=== PATIENT | female | born 1975 | race American Indian/Alaskan Native ===

== ENCOUNTER 2016-07-27 17:04 | Emergency (ER) | payer SELFPAY ==
--- NOTE | 2016-07-27 17:35 | OBHP ---
Datetime: 07/27/2016 17:31 IP Adm Impression: Term, intrauterine IP Admit Plan: Observation/Evaluation Admit Comment, IP Provider: at 38+weeks came with c/o decreased movements since morning, no ctxs, vb, lof.pt feels it but light. obhx 2 x c/s pmh den med pnv all nkda psh denies soch denies a/p at 38+weeks dec fm start ivf cbc/t _ screen cont salome and efm cont close observation Pelvic Type - PN: Adequate Extremities - PN: Normal Abdomen - PN: Normal Back - PN: Normal Breast - PN: Normal Lungs - PN: Normal Heart - PN: Normal Thyroid - PN: Normal Neurologic - PN: Normal HEENT - PN: Normal General - PN: Normal FHR - Baseline A Provider: 130 Contraction Comments Provider: none EGA AdmitDate IP: 38.4 Vital Signs Provider: Reviewed; Within Normal Limits IP Chief Complaint: Decreased movement NICHD Variability Prov Fetus A: Moderate 6-25bpm Genitourinary Exam: Normal DTRs - PN: Normal
[2016-07-27 17:36] VITALS: BMI 41.1
[2016-07-27] MEDS ORDERED: Lactated Ringer's 1,000 ML IV SCH (17:45)
[2016-07-27] MEDS ORDERED: Dextrose 5%/Lactated Ringer's 1,000 ML IV SCH (17:45)
[2016-07-27 17:59] LABS: MEAN CELL VOLUME 83.1 fL (81.0-99.0); MEAN CORPUSCULAR HEMOGLOBIN 26.8 pg (27.0-31.0); MEAN CORPUSCULAR HGB CONC 32.3 g/dL (33.0-37.0); MEAN PLATELET VOLUME 8.5 fL (7.2-11.7); RED CELL DISTRIBUTION WIDTH 15.7 % (11.5-14.5); WHITE BLOOD COUNT 10.3 K/uL (4.8-10.8)
--- NOTE | 2016-07-27 20:36 | OBDCSUM ---
Datetime: 07/27/2016 18:16 Follow up at, Provider: AMA Disch Instr Activity: Normal activity Disch Instr Diet: Regular Follow up in weeks, Provider: as schedule Disch Referrals: None Discharge Comment, Provider: dc home c/s on monday labor ins given Discharge Diagnosis Prov Other: 38weeks dec fm nst
--- NOTE | 2016-07-27 20:37 | OBHP ---
Datetime: 07/27/2016 20:17 Admit Comment, IP Provider: pt was seen at bed side. feels the baby moving sono bpp 12/06 plan dc home c/s on monday labor ins given f/u in 2days FHR - Baseline A Provider: 130 Vital Signs Provider: Reviewed NICHD Variability Prov Fetus A: Moderate 6-25bpm NICHD Accel Fetus A IP Provider: 15X15 FHR Category Provider Fetus A: Category I Datetime: 07/27/2016 17:31 EGA AdmitDate IP: 38.4
--- NOTE | 2016-07-28 11:14 | US ---
PROCEDURE: HISTORY: decreased fm COMPARISON: None TECHNIQUE: Transabdominal scanning of the maternal pelvis and a 2nd/ 3rd trimester with image documentation FINDINGS: Fetus: Single intrauterine gestation heart rate: Present at 141 beats per minute presentation: Cephalic Placenta: Posterior without previa or abruption Amniotic fluid : Normal appearin.8 cm ; pockets 3.4, 4.3, 5.0 and 2.1 anatomy: Limited due to late gestation. biometrics: Gestational age by ultrasound: 39 weeks 3 days +/-2 weeks 5 days with estimated date of delivery 07/31/2016 Estimated weight: 3771 g +/-566 g Maternal factors: Uterus: Unremarkable. No myometrial masses Cervix: 2.5 cm length Free fluid: None Biophysical profile: Breathin Gross body movements: 2 Limb tone: 2 Amniotic Fluid: 2 Total biophysical profile: 12/06 IMPRESSION: Single intrauterine gestation with normal cardiac activity. presentation - cephalic. No previa . Biophysical profile 12/06
== END 2016-07-27 18:16 | disposition home or self-care (01) ==
LOC: C.EROB 17:04
DX: O36.8130 Decreased fetal movements, third trimester, not applicable or unspecified (principal); Z3A.38 38 weeks gestation of pregnancy
CPT/HCPCS: 76815; 76818; 85027; 86850; 86900; 99283; J7120

== ENCOUNTER 2016-07-29 07:46 | Inpatient (IN) | payer SELFPAY ==
[2016-07-29 08:08] VITALS: BMI 41.3
[2016-07-29] MEDS ORDERED: cefOXitin IV 2 gm in Dextrose 50 ML IVPB ONE ×2 (08:09→08:57)
[2016-07-29] MEDS ORDERED: Lactated Ringer's 1,000 ML IV SCH ×2 (08:15)
[2016-07-29] MEDS ORDERED: Sodium Citrate/Citric Acid 15 ml Sol ONE (08:57)
[2016-07-29 09:04] LABS: BASO % 0.4 % (0.0-2.0); EOS # 0.1 K/uL (0.0-0.7); EOS % 0.8 % (0.0-4.0); HEMATOCRIT 31.2 % (34.0-47.0); LYMPH # 2.1 K/uL (1.0-4.3); LYMPH % 26.2 % (20.0-40.0); MEAN CELL VOLUME 82.8 fL (81.0-99.0); MEAN CORPUSCULAR HGB CONC 32.6 g/dL (33.0-37.0); MEAN PLATELET VOLUME 8.8 fL (7.2-11.7); MONO # 0.6 K/uL (0.0-0.8); MONO % 7.9 % (0.0-10.0); RED CELL DISTRIBUTION WIDTH 15.6 % (11.5-14.5); WHITE BLOOD COUNT 8.1 K/uL (4.8-10.8)
[2016-07-29 09:10] LABS: CHLORIDE 102 mmol/L (98-107)
[2016-07-29 09:11] LABS: POTASSIUM 4.3 mmol/L (3.6-5.2); SODIUM 135 mmol/L (132-148)
[2016-07-29] MEDS: Sodium Citrate/Citric Acid 15 ml Sol PO ONE (09:11)
[2016-07-29 09:13] LABS: BILIRUBIN,TOTAL 0.3 mg/dL (0.2-1.3); GFR AFRICAN-AMERICAN > 60; RBC URINE < 1 /hpf (0-3); URINE BACTERIA MOD (<OCC); URINE BILIRUBIN NEGATIVE (NEGATIVE); URINE BLOOD NEGATIVE (NEGATIVE); URINE COLOR Yellow (YELLOW); URINE GLUCOSE (UA) NORMAL (Normal); URINE KETONE NEGATIVE (NEGATIVE); URINE LEUKOCYTE ESTERASE NEG Leu/uL (Negative); URINE PROTEIN NEGATIVE (NEGATIVE); URINE UROBILINOGEN NORMAL mg/dL (0.2-1.0); WBC URINE 9 /hpf (0-5)
[2016-07-29 09:14] LABS: ALKALINE PHOSPHATASE 76 U/L (38-126); AST/SGOT 14 U/L (14-36); BLOOD UREA NITROGEN 8 mg/dL (7-17); CARBON DIOXIDE 18 mmol/L (22-30); GLUCOSE,RANDOM 93 mg/dL (65-105)
[2016-07-29 09:29] LABS: ALT/SGPT 18 U/L (9-52)
[2016-07-29] MEDS ORDERED: Morphine 1 mg/ml preservative-free Inj(Duramorph) ONE (09:31)
[2016-07-29] MEDS ORDERED: Oxytocin 10 Units/ml Inj ONE (10:25)
[2016-07-29] MEDS ORDERED: ePHEDrine 50 mg/ml Inj ONE (10:40)
[2016-07-29] MEDS ORDERED: Naloxone 0.4 mg/ml Inj (Adult) IVP PRN (11:48)
[2016-07-29] MEDS ORDERED: cefOXitin IV 2 gm in Dextrose 50 ML IVPB SCH (13:45)
[2016-07-29] MEDS: Simethicone 80 mg Chewtab PO SCH ×3 (14:15→21:44)
--- NOTE | 2016-07-29 15:33 | PCM.SURG1 ---
Surgeon's Initial Post Op Note - Surgeon's Notes Surgeon: Radha Sandoval MD Can Closing Machine Operator: Ming Luis MD. 2nd Can Closing Machine Operator: Marilia Pedro MS-3 Type of Anesthesia: Spinal Anesthesia Administered By: Dr. Irvin Pre-Operative Diagnosis: Advanced maternal age; previous Caesarean section x 2; 38 weeks 6 days; anemia. Operative Findings: Live female , right occiput transverse, weight 8lb 1oz , Apgars 9/9. Cord pH 7.20. Dense adhesions from anteriorl aspect of uterus to abdominal wall. Normal uterus with small right anterofundal subserosal myoma 2 x 3 cm; normal fallopians tubes and ovaries, bilaterally Post-Operative Diagnosis: Same Operation Performed: Repeat transverse lower uterine segment Caesaeran section. Lysis of adhesions. Specimen/Specimens Removed: None Estimated Blood Loss: EBL {In ML}: 800 (U.O. 400 mL; 1500 mL LR) Blood Products Given: N/A Drains Used: No Drains Post-Op Condition: Good Date of Surgery/Procedure: 07/29/16 Time of Surgery/Procedure: 12:15
--- NOTE | 2016-07-29 15:45 | OBDS ---
DELIVERY PERSONNEL Delivery Doctor: Leonela Sandoval MD Scrub Nurse: Ruthy Heranndez OBT Network Security Consultant: Fco Hussein RN Anesthesiologist: Beatris Irvin MD MATERNAL INFORMATION Delivery Anesthesia: Spinal Medications in Delivery: pitocin 20/metergen/pit 10 add to pit 20 Estimated Blood Loss (ml): 800 Placenta Cultured: No Maternal Complications: None Provider Comments: Uncomplicated repeat transverse lower uterine segment Caesarean section performed with atraumatic delivery of live female infant, ROT; weight 8lb 1oz, Apgars 9/9; cord pH 7.20. Lysis was performed after delivery of infant; same repaired with multiple stitches using O, and 2-0 biosyn ; and 4-O monocryl. Grossly normal placenta; 3 vessel cord. Grossly normal uterus; grossly normal fal lopian tubes and ovaries, bilaterally. Hemostasis assured throughout. Patient tolerated procedure we ll; to LDR#2 for recovery in stable condition. LABOR SUMMARY EDC: 08/06/2016 00:00 No. Babies in Womb: 1 Attempted: No Labor Anesthesia: None LABOR INFORMATION Reason for Induction: Not Applicable Oxytocin: N/A Group B Beta Strep: Negative (Annotations: 07/07/2016) Antibiotics # of Doses: 1 Antibiotics Time of Last Dose: 9:45 Steroids Given: None Reason Steroids Not Administered: Not Applicable MEMBRANES Membranes Rupture Method: Artificial Rupture of Membranes: 07/29/2016 10:16 Length of Rupture (hrs): 0.03 Amniotic Fluid Color: Clear Amniotic Fluid Amount: Moderate Amniotic Fluid Odor: Normal STAGES OF LABOR Stage 3 hrs: 0 Stage 3 min: 1 VAGINAL DELIVERY Episiotomy: None Laceration Extension: N/A Laceration Type: None CSECTION DELIVERY Primary Indication: Repeat Elective Secondary Indication: N/A CSection Urgency: N/A CSection Incidence: Repeat Labor: N/A Elective: Elective CSection Incision: Lower Uterine Transverse Uterine Closure: Double-layer closure BABY A INFORMATION Infant Delivery Date/Time: 07/29/2016 10:18 Method of Delivery: Born in Route : No : N/A Forceps: N/A Vacuum Extraction: Successful Shoulder Dystocia : No SHOULDER DYSTOCIA BABY A Delivery Date/Time: 07/29/2016 10:18 PRESENTATION/POSITION BABY A Presentation: Cephalic Cephalic Presentation: Vertex Breech Presentation: N/A PLACENTA INFORMATION BABY A Placenta Delivery Time : 07/29/2016 10:19 Placenta Method of Delivery: Manual Removal Placenta Status: Delivered SCORES BABY A Heart Rate 1 min: >100 bpm Resp Effort 1 min: Good Cry Reflex Irritability 1 min: Cough or Sneeze or Pulls Away Muscle Tone 1 min: Active Motion Color 1 min: Body [place], Extremities Blue Resuscitation Effort 1 min: Tactile Stimulation SCORE 1 MIN: 9 Heart Rate 5 min: >100 bpm Resp Effort 5 min: Good Cry Reflex Irritability 5 min: Cough or Sneeze or Pulls Away Muscle Tone 5 min: Active Motion Color 5 min: Body [place], Extremities Blue SCORE 5 MIN: 9 INFANT INFORMATION BABY A Gestational Age at Delivery: 38.0 Gestational Status: Term Infant Outcome : Liveborn Condition : Stable Infant Sex: Female IDENTIFICATION/MEDS BABY A ID Band Number: [id number] ID Band Location: Left Leg; Left Arm Sensor Applied: Yes Sensor Number: [id number] Sensor Location : Cord Clamp WEIGHT/LENGTH BABY A Infant Birthweight (gms): 3650 Infant Weight (lb): 8 Infant Weight (oz): 1 Infant Length Inches: 19.50 Infant Length cms: 49.5 CORD INFORMATION BABY A No. Cord Vessels: 3 Nuchal Cord : N/A Cord Blood Taken: Yes Suction: Mouth; Nose ASSESSMENT BABY A Complications: None Physical Findings at Delivery: Within Normal Limits; Other Physical Findings Other: hernia by umblicus Respirations: Appears Normal Lone Lead Lineman/ALS Called : No Infant Care By: JESSICA Transferred To: Remains with Mother
[2016-07-29] MEDS: cefOXitin IV 2 gm in Dextrose 50 ML IVPB SCH (17:19)
--- NOTE | 2016-07-29 17:25 | OP ---
PROCEDURE DATE: 07/29/2016 SURGEON: Radha Sandoval M.D. NATURALIST: Ming Luis M.D. SECOND CONSTITUTIONAL LAW PROFESSOR: Marilia Pedro MS-3 ANESTHESIA TYPE: Spinal. ANESTHESIOLOGIST: Dr. Bereket Elliott. PREOPERATIVE DIAGNOSES: A 38 week 6 days gestation, previous Caesarean section x 2, advanced maternal age and anemia. POSTOPERATIVE DIAGNOSES: A 38 week 6 days gestation, previous Caesarean section x 2, advanced maternal age and anemia. OPERATIVE FINDINGS: Live female from the right occipital transverse position, weight 8 pounds 1 ounce and Apgars of 9 and 9 at 1 and 5 minutes respectively. Cord pH 7.20. There were dense adhesions from the anterior aspect of the uterus to the anterior abdominal wall. Otherwise grossly normal uterus with a small right chris-fundal subserosal myoma 2 cm x 3 cm; and normal fallopian tubes and ovaries, bilaterally. OPERATION PERFORMED: Repeat transverse lower uterine segment Caesarean section and lysis of adhesions. ESTIMATED BLOOD LOSS: 800 mL. URINE OUTPUT: 400 mL of clear urine. INTRAVENOUS FLUIDS: 1500 mL of lactated Ringers. BLOOD PRODUCTS GIVEN: None. COMPLICATIONS: None. SPECIMENS: None. PROCEDURE: The patient was taken to the operating room after having obtained informed consent for the anticipated procedure. This included a discussion of possible risks and complications including but not limited to infection requiring additional antibiotics, hemorrhage requiring blood transfusion, repair of any damage to internal organs and possible Caesarean hysterectomy. The patient expressed an understanding and agreed; no questions were offered. Consent forms were signed, dated, witnessed and placed in the patient's chart. Prior to being transferred to the operating room a Crenshaw catheter was inserted under sterile conditions and the patient received Mefoxin 2 grams. Once in the operating room, she was placed on the operating room table in a sitting position. Spinal anesthesia was administered without incident. She was immediately repositioned into a supine position. heart tones were auscultated at 152 beats per minute. The abdomen was prepped and draped in the usual sterile fashion. After assuring an adequate level of anesthesia, using the first scalpel, a Pfannenstiel incision was made through the previous scar. The incision was carried down through the subcutaneous tissue using the Bovie electrocautery. The fascia was identified, it was nicked in the midline and the incision was extended bilaterally also using the Bovie electrocautery. The rectus muscle was dissected off the overlying fascia. Subsequently, rectus muscle was in the midline using sharp dissection and the abdominal cavity was entered in its most superior aspect by blunt dissection. It was not possible to visualize or palpate the uterus due to dense adhesions. After alternating sharp and blunt countertraction with dissection, the bladder was identified and the lower blade of the Michael retractor was placed to protect the bladder. The bladder flap was not created. A transverse incision was then made on the lower uterine segment of the uterus. Amniotomy was performed and a moderate amount of clear amniotic fluid was noted. There was some technical difficulty delivering the 's head. A vacuum attempt was made, but after 1 pop off, the decision was made to abandon this method of assisted delivery. A Maylard procedure was performed on the right rectus muscle. This resulted in the delivery of the infant, described as above. Once on the operative field, the 's mouth and nose were bulb suctioned as the umbilical cord was doubly clamped and cut. The infant was handed off the operative field to the noodle catalyst maker in attendance. A segment of the umbilical cord was obtained for cord pH analysis with the results as above. The placenta was then delivered manually. It was grossly intact with 3 vessels present in the cord. The decision was made to perform lysis of adhesions in order to exteriorize the uterus and better assess for any trauma to the uterus. This was performed by clamping and tying various levels of the omentum using Honey clamps x 2 and then securing the ligated ends using 0 chromic free tie sutures. Once this was performed, the uterus was delivered on to the operative field. Closure of the transverse lower uterine segment incision was done in 2 layers using 0 Vicryl. The first layer was a running interlocking fashion, the second layer was in horizontal imbricating fashion. Additional [id number] stitches using 0 Biosyn suture were used along the uterine incision to assure hemostasis. As a result of the prior lysis of adhesions, areas of myometrium were exposed. These areas were made hemostatic using several stitches of 0 Biosyn, 2-0 Biosyn and then 4-0 Monocryl. Evaluation of the pelvic viscera was performed; findings as above. The uterus was then returned to the abdominal cavity and the paracolic gutters were cleared of all debris. Surgicel was placed along the denuded areas of the uterus as well as along the transverse uterine incision. The Maylard incision on the right rectus muscle was reapproximated using 0 Biosyn in interrupted stitches. After assuring an adequate degree of hemostasis , the rectus muscles were reapproximated in the midline. The fascia was then reapproximated using 1-0 Vicryl in 2 halves. The subcutaneous tissue was reapproximated using 0 plain catgut and surgical clips were applied to the skin for reapproximation. Bimanual examination with uterine massage was performed. The uterus was evacuated of all clots. It was noted to be contracted and firm and about 1 fingerbreadth below the umbilicus. The patient tolerated the procedure well. She was transferred back to [facility] in stable condition. The having been transferred to the [facility] also in stable condition. Dr. Luis was present as a surgical garment inspector during the entire procedure from beginning to the end. His presence was necessary for: 1) adequate visualization of the operative field at all times; 2) the safe and atraumatic delivery of the ; 3) assuring hemostasis throughout the procedure. Radha Suzi Sandoval MD cc: [id number] TT: 07/29/2016 17:24:37 sn MTDD
--- NOTE | 2016-07-29 21:09 | OBADHP ---
Datetime: 07/29/2016 08:43 IP Chief Complaint Other: Advanced maternal age. Anemia Admit Comment, IP Provider: 41 yo , LMP unsure, LAURA 08/06/16, EGA 38w 6d by sono 03/16/16 at 1 9w 4d, for elective repeat C/S. Patient is a late transfer of care at 36 weeks: has 2 papers with her from her previous provider in [place] - one of which is the report of the 19+ weeks ultraso und. Patient seen at [facility]- x 2 visits; grossly normal late third trimestre screening. Patient is not for permanent sterilization. (+) AFM. Denies LOF, VB, Ctx P Ob: C/S x 2: 2008, male, 3.3 Kg, arrest of dilatation at 5 cm. 2011, male, 3.5 Kg - elective rep eat. Both performed in [facility]. Second noted for elevated BP after delivery - was on anti-h ypertensive < 2 months. No other problems with HTN since. P REGISTERED DIETICIAN: 12 x 28 x 4. Denies STI or abnormal Pap PMH: gest HTN PSH: C/S x 2 NKDA Meds: PNV and iron - each QD Soc Hx: denies tobacco, illicit drug or EtOH use. x 7 years; is still in [place]. Unemployed Fam Hx: Mother alive 50 - no med issues. Father mid 50s, 2008 - cause unknown. No known f am h/o cancer P.E.: as above. Obese, in NAD. Awake, alert, oriented to time, person and place. Pleasant and coop erative. Accompanied by her mother and a sister. Assessment: 41 y.o. P2, 38w 6d, previous C/S x 2 for elective repeat. Category 1 tracing. R/B/C of repeat C/S were discussed at length; no questions offered. Consent signed, dated, witnessed and plac ed in chart. Last ate approximateky 2100 hours. Patient is clinically stable. Plan: 1) Admit 2) NPO 3) Admission, incl Hep Bs Ag, HIV 4) Continuous EFM 5) Crenshaw 6) Abdominal prep and shave 7) Mefoxin, simulation engineer to O.R. 8) Patient simulation engineer to O.R. 9) Notify anesthesia 10) Notify peds Pelvic Type - PN: Not Done Extremities - PN: Normal Abdomen - PN: Normal Back - PN: Normal Breast - PN: Not Done Lungs - PN: Normal Heart - PN: Normal Thyroid - PN: Not Done Neurologic - PN: Normal HEENT - PN: Normal General - PN: Normal Presentation-Admit: Vertex FHR - Baseline A Provider: 145 Contraction Comments Provider: none Comments, ACOG Physical Exam: Skin: warm, dry, intact HEENT: full ROM Cardiac: RRR, normal S1, S2 Lungs: CTA bilaterally Abdomen: Gravid. Soft. Healed Pfannenstiel scar Extremities: no calf tenderness, cyanosis or edema All other systems reviewed and are negative. Gestation - Est Wks by US: 38w 6d IP Hx Assessment: Late transfer of care IP Chief Complaint: Scheduled Section NICHD Variability Prov Fetus A: Moderate 6-25bpm NICHD Accel Fetus A IP Provider: 15X15 FHR Category Provider Fetus A: Category I NICHD Decel Fetus A IP Provider: None Genitourinary Exam: Not Done DTRs - PN: Not Done EGA AdmitDate IP: 38.6 IP Adm Impression: Term, intrauterine ; No Active Labor; Intact Membranes IP Admit Plan: Admit to unit; Initiate Section protocol Datetime: 07/27/2016 20:17 Vital Signs Provider: Reviewed
[2016-07-30] MEDS: cefOXitin IV 2 gm in Dextrose 50 ML IVPB SCH (01:06)
--- NOTE | 2016-07-30 09:35 | OBPPN ---
Datetime: 07/30/2016 09:32 PP Pain Prov: Within normal limits PP Nausea Prov: Denies PP Flatus Prov: Yes PP BM Prov: No PP Breasts Prov: Normal PP Heart Prov: Normal PP Lungs Prov: Normal PP Abdomen/Uterus Prov: Normal PP Lochia Prov: Normal PP Vulva/Perineum Prov: Not Done PP CVA Tenderness Prov: Normal PP Extremities Prov: Normal PP C/S Incision Prov: Normal PP Progress Prov: Normal PP Impression Prov: Normal progression PP Plan Prov: Continue present management PP Progress Note Prov: S-patient denies any compalints.reports that pain is well controlled.Denies n ausea, vomiting, headache, chest pain, shortness of breath, numbness or tingling in hands and feet.To lerating liquid diet O-VSS afebrile Fundus firm and below umbilcius dressing clean dry and intact Extremities no calf tendernes A/P Patient s/p vaginal delivery POD 1 doing well -advance diet -start iron for anemia daily -encouarge ambulation and po fluid intake Vital Signs Provider PP: Reviewed; Within Normal Limits
[2016-07-30] MEDS: Enoxaparin 40 mg Syringe SC SCH (09:58)
[2016-07-30] MEDS: Prenatal Multivit/Folic Acid/Iron Tab PO SCH (09:58)
[2016-07-30] MEDS: Simethicone 80 mg Chewtab PO SCH ×4 (09:58→21:36)
[2016-07-30 12:15] LABS: BASO % 0.3 % (0.0-2.0); EOS # 0.1 K/uL (0.0-0.7); EOS % 0.5 % (0.0-4.0); HEMATOCRIT 27.3 % (34.0-47.0); LYMPH # 1.5 K/uL (1.0-4.3); LYMPH % 13.1 % (20.0-40.0); MEAN CELL VOLUME 83.6 fL (81.0-99.0); MEAN CORPUSCULAR HEMOGLOBIN 26.7 pg (27.0-31.0); MEAN PLATELET VOLUME 8.9 fL (7.2-11.7); MONO # 1.3 K/uL (0.0-0.8); MONO % 10.7 % (0.0-10.0); RED CELL DISTRIBUTION WIDTH 15.8 % (11.5-14.5); WHITE BLOOD COUNT 11.8 K/uL (4.8-10.8)
[2016-07-30] MEDS: Oxycodone/Acetaminophen 5/325 mg Tab PO PRN ×2 (13:37→17:55)
[2016-07-31] MEDS: Oxycodone/Acetaminophen 5/325 mg Tab PO PRN ×2 (02:10→18:53)
[2016-07-31] MEDS: Simethicone 80 mg Chewtab PO SCH ×4 (09:04→21:54)
[2016-07-31] MEDS: Enoxaparin 40 mg Syringe SC SCH (09:05)
[2016-07-31] MEDS: Prenatal Multivit/Folic Acid/Iron Tab PO SCH (09:05)
[2016-07-31 16:09] VITALS: RESP 20
[2016-08-01] MEDS: Oxycodone/Acetaminophen 5/325 mg Tab PO PRN ×2 (02:03→10:02)
--- NOTE | 2016-08-01 07:28 | CP.PCM.DIS ---
Provider - Provider Date of Admission: 07/29/16 07:46 Attending physician: Radha Sandoval MD Time Spent in preparation of Discharge (in minutes): 45 Diagnosis - Discharge Diagnosis (1) Previous section Status: Chronic Hospital Course - Lab Results Lab Results: Most Recent Lab Values WBC 11.8 K/uL (4.8-10.8) H 07/30/16 12:01 RBC 3.27 Mil/uL (3.80-5.20) L 07/30/16 12:01 Hgb 8.7 g/dL (11.0-16.0) L 07/30/16 12:01 Hct 27.3 % (34.0-47.0) L 07/30/16 12:01 MCV 83.6 fL (81.0-99.0) 07/30/16 12:01 MCH 26.7 pg (27.0-31.0) L 07/30/16 12:01 MCHC 32.0 g/dL (33.0-37.0) L 07/30/16 12:01 RDW 15.8 % (11.5-14.5) H 07/30/16 12:01 Plt Count 223 K/uL (130-400) 07/30/16 12:01 MPV 8.9 fL (7.2-11.7) 07/30/16 12:01 Neut % (Auto) 75.4 % (50.0-75.0) H 07/30/16 12:01 Lymph % (Auto) 13.1 % (20.0-40.0) L 07/30/16 12:01 [place] % (Auto) 10.7 % (0.0-10.0) H 07/30/16 12:01 Eos % (Auto) 0.5 % (0.0-4.0) 07/30/16 12:01 Baso % (Auto) 0.3 % (0.0-2.0) 07/30/16 12:01 Neut # 8.9 K/uL (1.8-7.0) H 07/30/16 12:01 Lymph # 1.5 K/uL (1.0-4.3) 07/30/16 12:01 [place] # 1.3 K/uL (0.0-0.8) H 07/30/16 12:01 Eos # 0.1 K/uL (0.0-0.7) 07/30/16 12:01 Baso # 0.0 K/uL (0.0-0.2) 07/30/16 12:01 Sodium 135 mmol/L (132-148) 07/29/16 08:49 Potassium 4.3 mmol/L (3.6-5.2) 07/29/16 08:49 Chloride 102 mmol/L (98-107) 07/29/16 08:49 Carbon Dioxide 18 mmol/L (22-30) L 07/29/16 08:49 Anion Gap 19 (10-20) 07/29/16 08:49 BUN 8 mg/dL (7-17) 07/29/16 08:49 Creatinine 0.5 MG/DL (0.7-1.2) L 07/29/16 08:49 Est GFR ( Amer) > 60 07/29/16 08:49 Est GFR (Non-Af Amer) > 60 07/29/16 08:49 Random Glucose 93 mg/dL (65-105) 07/29/16 08:49 Uric Acid 5.0 mg/dL (2.2-7.5) 07/29/16 08:49 Calcium 9.0 mg/dl (8.6-10.4) 07/29/16 08:49 Total Bilirubin 0.3 mg/dL (0.2-1.3) 07/29/16 08:49 AST 14 U/L (14-36) 07/29/16 08:49 ALT 18 U/L (9-52) 07/29/16 08:49 Alkaline Phosphatase 76 U/L (38-126) 07/29/16 08:49 Lactate Dehydrogenase 403 U/L (313-618) 07/29/16 08:49 Total Protein 7.0 g/dL (6.3-8.3) 07/29/16 08:49 Albumin 3.5 g/dL (3.5-5.0) 07/29/16 08:49 Globulin 3.5 gm/dL (2.2-3.9) 07/29/16 08:49 Albumin/Globulin Ratio 1.0 (1.0-2.1) 07/29/16 08:49 Urine Color Yellow (YELLOW) 07/29/16 08:49 Urine Clarity Hazy (Clear) 07/29/16 08:49 Urine pH 5.0 (5.0-8.0) 07/29/16 08:49 Ur Specific [place] 1.012 (1.003-1.030) 07/29/16 08:49 Urine Protein Negative mg/dL (NEGATIVE) 07/29/16 08:49 Urine Glucose (UA) Normal mg/dL (Normal) 07/29/16 08:49 Urine Ketones Negative mg/dL (NEGATIVE) 07/29/16 08:49 Urine Blood Negative (NEGATIVE) 07/29/16 08:49 Urine Nitrate Negative (NEGATIVE) 07/29/16 08:49 Urine Bilirubin Negative (NEGATIVE) 07/29/16 08:49 Urine Urobilinogen Normal mg/dL (0.2-1.0) 07/29/16 08:49 Ur Leukocyte Esterase Neg Janeth/uL (Negative) 07/29/16 08:49 Urine WBC (Auto) 9 /hpf (0-5) H 07/29/16 08:49 Urine RBC (Auto) < 1 /hpf (0-3) 07/29/16 08:49 Ur Squamous Epith Cells < 1 /hpf (0-5) 07/29/16 08:49 Urine Bacteria Mod (<OCC) H 07/29/16 08:49 RPR Nonreactive (NONREACTIVE) 07/29/16 08:49 Blood Type O POSITIVE 07/29/16 08:49 Antibody Screen Negative 07/29/16 08:49 - Hospital Course Hospital Course: This patient is a 36yo F who delivered via C section electively by Dr. Sandoval; patient had a category 1 tracing; patient is from [place]. There were no intraoperative problems, nor were there any postoperative complications. 1) The patient needs to follow up either this or monday for removal of her franklin 2) She will need to follow up in 2 weeks for a regular OBGYN appointment 3) No sex for 6 weeks; nothing in the vagina, no tampons/pads or douching 4) Congratulations on your new baby; please follow up with the decorator hand as indicated Discharge Exam - Head Exam Head Exam: ATRAUMATIC - Eye Exam Eye Exam: EOMI, Normal appearance - ENT Exam ENT Exam: Mucous Membranes Moist - Neck Exam Neck exam: Full Rom - Respiratory Exam Respiratory Exam: Clear to PA & Lateral. absent: Accessory Muscle Use, Rales, Rhonchi, Wheezes - Cardiovascular Exam Cardiovascular Exam: REGULAR RHYTHM, RRR, +S1, +S2. absent: Rubs - GI/Abdominal Exam GI & Abdominal Exam: Normal Bowel Sounds, Soft, Tenderness Additional comments: uterine fundus felt at the umbilicus - Rectal Exam Rectal Exam: Deferred - Extremities Exam Additional comments: no calf tenderness - Neurological Exam Neurological exam: Alert, CN II-XII Intact, Normal Gait, Oriented x3, Reflexes Normal - Skin Skin Exam: Warm Discharge Plan - Discharge Medications Prescriptions: Ferrous Sulfate 325 mg PO DAILY #30 tablet Ibuprofen [Motrin Tab] 800 mg PO Q8H PRN #30 tab PRN Reason: Pain/Cramping oxyCODONE/Acetaminophen [Percocet 5/325 mg Tab] 1 ea PO Q6H PRN #30 tab PRN Reason: Pain/Cramping - Follow Up Plan Condition: GOOD Disposition: HOME/ ROUTINE Additional Instructions: 1) The patient needs to follow up either this or monday for removal of her franklin 2) She will need to follow up in 2 weeks for a regular OBGYN appointment 3) No sex for 6 weeks; nothing in the vagina, no tampons/pads or douching 4) Congratulations on your new baby; please follow up with the decorator hand as indicated 5) If you feel that your wound starts to open up, pus starts coming out of the wound site, profuse bleeding from the wound site or that you are changing more than 3 pads per hour, or that you have extreme fevers or chills, please come back to the nearest emergency department for prompt evaluation
--- NOTE | 2016-08-01 07:34 | OBDCSUM ---
Datetime: 08/01/2016 07:32 Discharged to, Provider: Home Follow up at, Provider: Disch Instr Activity: Normal activity Disch Instr Diet: Regular Discharge Diagnosis, Provider: Term Delivered Follow up in weeks, Provider: clinic Disch Activity Restrictions: No exercising; No lifting; No driving; Minimize walking; Minimize stair -climbing; No sexual activity; Nothing in vagina - [place], tampons, douche Discharge Comment, Provider: dc home no sex percocet prn ferrous slufate bid f/u in clinic on /monday for franlkin removal Discharge Diagnosis Prov Other: s/p c/s
--- NOTE | 2016-08-01 07:34 | OBPPN ---
Datetime: 08/01/2016 07:30 PP Pain Prov: Within normal limits PP Nausea Prov: Denies PP Flatus Prov: Yes PP Abdomen/Uterus Prov: Normal PP Lochia Prov: Normal PP Extremities Prov: Normal PP C/S Incision Prov: Normal PP Comments Phys Exam Prov: fudus below umblicus ext no edema,no calf ten incision clean and dry PP Impression Prov: Normal progression PP Plan Prov: Discharge PP Progress Note Prov: pt was seen at bed side, pain under control, no n/v, tolerating deit,voiding, min lochia, flatus+ pod#3 s/p c/s, anemia dc home no sex percocet prn ferrous slufate bid f/u in clinic on /monday for franklin removal Vital Signs Provider PP: Reviewed; Within Normal Limits
[2016-08-01] MEDS: Simethicone 80 mg Chewtab PO SCH ×2 (10:02→14:45)
[2016-08-01] MEDS: Prenatal Multivit/Folic Acid/Iron Tab PO SCH (10:02)
[2016-08-01] MEDS: Enoxaparin 40 mg Syringe SC SCH (10:03)
[2016-08-01 17:21] VITALS: BP 143/84; PULSE 83; TEMP 98.9; O2SAT 100
== END 2016-08-01 18:42 | disposition home or self-care (01) | DRG 766 ==
LOC: C.4D 07:46 → C.4M 14:15
PROVIDERS: ADMIT Obstetrics & Gynecology; ATTEND Obstetrics & Gynecology
PROC: 10D00Z1 Extraction of Products of Conception, Low, Open Approach (ICD-10-PCS; principal; 2016-07-29)
PROC: 0UN90ZZ Release Uterus, Open Approach (ICD-10-PCS; 2016-07-29)
DX: O99.013 Anemia complicating pregnancy, third trimester (principal); D25.2 Subserosal leiomyoma of uterus; D64.9 Anemia, unspecified; O09.523 Supervision of elderly multigravida, third trimester; Z3A.38 38 weeks gestation of pregnancy; O34.219 Maternal care for unspecified type scar from previous cesarean delivery; Z37.0 Single live birth; O34.13 Maternal care for benign tumor of corpus uteri, third trimester; O99.89 Other specified diseases and conditions complicating pregnancy, childbirth and the puerperium; N73.6 Female pelvic peritoneal adhesions (postinfective)